=== PATIENT | male | born 1990 | race African-American/Black ===

== ENCOUNTER 2017-11-06 05:18 | Emergency (ER) | payer SELFPAY ==
[~2017-11-06] VITALS: Ht 188 cm; Wt 78.6 kg
[~2017-11-06 05:18] MED LIST: AMOXICILLIN500 MG PO; KEFLEX500 MG OR; KEFLEX500 MG PO; LORTAB5 OR; NO HOME MEDS; ZOFRAN4 M1 OR
[2017-11-06] MEDS ORDERED: AMOXICILLIN500 MG PO (05:39)
[2017-11-06] MEDS ORDERED: LORTAB 1010 MG PO (05:39)
[2017-11-06 05:45] VITALS: BP 128/69
== END 2017-11-06 05:45 | disposition home or self-care (01) | DRG 159 ==
LOC: ED 05:18
DX: K04.7 Periapical abscess without sinus (principal); F17.290 Nicotine dependence, other tobacco product, uncomplicated

== ENCOUNTER 2023-03-18 13:46 | Emergency (ER) | payer SELFPAY ==
[~2023-03-18] VITALS: Ht 185.4 cm; Wt 68.8 kg
[~2023-03-18 13:46] MED LIST changes: +LORTAB 1010 MG PO
[2023-03-18 13:55] VITALS: BP 95/72
[2023-03-18 14:00] VITALS: BP 109/59
[2023-03-18] MEDS ORDERED: ULTRAM50 MG PO (14:08)
[2023-03-18] MEDS ORDERED: NAPROXEN500 MG PO (14:08)
[2023-03-18] MEDS ORDERED: PENICILLN VK500 MG PO (14:08)
[2023-03-18 14:32] VITALS: BP 116/64
[2023-03-18 14:33] VITALS: BP 116/645
== END 2023-03-18 14:42 | disposition home or self-care (01) | DRG 158 ==
LOC: ED 13:46
DX: K04.7 Periapical abscess without sinus (principal); K02.9 Dental caries, unspecified; M84.68XA Pathological fracture in other disease, other site, initial encounter for fracture; F17.200 Nicotine dependence, unspecified, uncomplicated

== ENCOUNTER 2023-10-23 07:25 | Emergency (ER) | payer SELFPAY ==
[~2023-10-23] VITALS: Ht 190.5 cm; Wt 73.0 kg
[~2023-10-23 07:25] MED LIST changes: +NAPROXEN500 MG PO; +PENICILLN VK500 MG PO; +ULTRAM50 MG PO
[2023-10-23 07:57] VITALS: BP 135/72
[2023-10-23 08:00] VITALS: BP 122/73
[2023-10-23 08:15] VITALS: BP 120/74
[2023-10-23 08:30] VITALS: BP 125/72
[2023-10-23] MEDS ORDERED: METRONIDAZOLE500 MG PO (08:39)
[2023-10-23] MEDS ORDERED: AMOX/K CLAV875 M1 PO (08:39)
[2023-10-23 08:45] VITALS: BP 147/77
[2023-10-23] MEDS ORDERED: NAPROXEN500 MG PO (08:50)
[2023-10-23 09:16] VITALS: BP 142/86
== END 2023-10-23 09:17 | disposition home or self-care (01) | DRG 159 ==
LOC: ED 07:25
PROC: 0C9 Mouth and Throat, Drainage (ICD-10-PCS; principal; 2023-10-23)
DX: K04.7 Periapical abscess without sinus (principal); F17.200 Nicotine dependence, unspecified, uncomplicated

== ENCOUNTER 2024-05-24 04:05 | Emergency (ER) | payer SELFPAY ==
[~2024-05-24] VITALS: Ht 190.5 cm; Wt 68.0 kg
[~2024-05-24 04:05] MED LIST changes: +AMOX/K CLAV875 M1 PO; +METRONIDAZOLE500 MG PO
[2024-05-24] MEDS ORDERED: KETOROLAC TROMETHAMINE 30 MG/ML SDV IM ONE (04:25)
[2024-05-24] MEDS ORDERED: ONDANSETRON 4 MG/TAB ODT SL ONE (04:25)
[2024-05-24] MEDS ORDERED: PENicillin V POTASSIUM 500 MG/TAB PO ONE (04:25)
[2024-05-24] MEDS ORDERED: oxyCODONE 5MG/ ACETAMINOPHEN 325MG TAB PO ONE (04:25)
[2024-05-24] MEDS ORDERED: EC-NAPROXEN500 MG PO (04:30)
[2024-05-24] MEDS ORDERED: PENICILLIN V P500 MG PO (04:30)
[2024-05-24] MEDS ORDERED: LORTAB 5/3255 MG PO (04:30)
[2024-05-24 04:43] VITALS: BP 112/56
== END 2024-05-24 04:48 | disposition home or self-care (01) | DRG 159 ==
LOC: ED 04:05
DX: K04.7 Periapical abscess without sinus (principal); K02.9 Dental caries, unspecified; S02.5XXA Fracture of tooth (traumatic), initial encounter for closed fracture; X58.XXXA Exposure to other specified factors, initial encounter; F17.200 Nicotine dependence, unspecified, uncomplicated

== ENCOUNTER 2024-06-18 15:35 | Emergency (ER) | payer SELFPAY ==
[~2024-06-18] VITALS: Ht 190.5 cm; Wt 75.0 kg
[~2024-06-18 15:35] MED LIST changes: +EC-NAPROXEN500 MG PO; +LORTAB 5/3255 MG PO; +PENICILLIN V P500 MG PO
[2024-06-18 15:41] VITALS: BP 127/73
[2024-06-18 15:45] VITALS: BP 122/71
[2024-06-18] MEDS ORDERED: POVIDONE IODINE 0.5 OZ/BTL TOP ONE (15:45)
[2024-06-18] MEDS ORDERED: LIDOcaine HCl 1% (Local Anesth.) 20 ML VIAL STI STA (15:45)
[2024-06-18] MEDS ORDERED: Diph, Acellular Pertussis, Tet 0.5 ML/VIAL (Tdap) SDV IM ONE (15:45)
[2024-06-18 16:00] VITALS: BP 132/84
[2024-06-18] MEDS ORDERED: KEFLEX500 MG PO (16:15)
[2024-06-18 16:16] VITALS: BP 109/48
[2024-06-18 16:22] VITALS: BP 109/48
== END 2024-06-18 16:58 | disposition home or self-care (01) | DRG 605 ==
LOC: ED 15:35
PROC: 0HQLXZZ Repair Left Lower Leg Skin, External Approach (ICD-10-PCS; principal; 2024-06-18)
DX: S81.012A Laceration without foreign body, left knee, initial encounter (principal); F17.200 Nicotine dependence, unspecified, uncomplicated; W25.XXXA Contact with sharp glass, initial encounter; Y93.E9 Activity, other interior property and clothing maintenance; Y92.009 Unspecified place in unspecified non-institutional (private) residence as the place of occurrence of the external cause